=== PATIENT | male | born 1950 | race Caucasian/White ===

== ENCOUNTER 2017-05-30 06:25 | Inpatient (IN) ==
[2017-05-30 06:51] LABS: Basophils # 0.1 K/mcL (0.0-0.2); Basophils % 0.7 %; Eosinophils # 0.1 K/mcL (0.0-0.6); Eosinophils % 1.5 %; Hematocrit 46.4 % (37.5-50.1); Hemoglobin 15.4 g/dL (12.9-16.9); Immature Granulocytes % 0.5 % (0-4); Lymphocytes # 1.2 K/mcL (0.6-4.6); Lymphocytes % 16.7 %; Mean Corpuscular HGB Conc 33.2 g/dL (31.6-35.5); Mean Corpuscular Hemoglobin 31.1 pg (28.0-33.3); Mean Corpuscular Volume 93.7 fL (83.0-100.0); Monocytes # 0.6 K/mcL (0.0-1.3); Monocytes % 8.3 %; Neutrophils # 5.3 K/mcL (1.6-8.9); Platelet Count 174 K/mcL (140-400); Red Blood Count 4.95 M/mcL (4.19-5.50); Red Cell Distribution Width 13.5 % (11.5-14.5); Segmented Neutrophils % 72.3 %
--- NOTE | 2017-05-30 06:59 | Emergency Department Note ---
Disposition Clinical Impression: Elevated troponin level Congestive heart failure Qualifiers: Congestive heart failure type: unspecified congestive heart failure type Congestive heart failure chronicity: acute Qualified Code(s): I50.9 - Heart failure, unspecified Community acquired pneumonia Qualifiers: Laterality: unspecified laterality Qualified Code(s): J18.9 - Pneumonia, unspecified organism Disposition: Admitted As Inpatient Condition: Fair Referrals: Barbara Vaz COLOR PRINTER OPERATOR [Primary Care Provider] - Forms: ED Satisfaction Letter Time of Disposition: 09:03 SOB HPI - General Chief Complaint: ED Shortness of Breath/Dyspnea Stated Complaint: shortness of breath Time Seen by Provider: 05/30/17 06:31 Source: patient Limitations: no limitations Nursing Notes Reviewed: Yes Vital Signs Reviewed: Yes - History of Present Illness Nontoxic-appearing 66-year-old male presents for evaluation of a nonproductive cough, shortness of breath, and pain with inspiration. He states that 2 weeks ago, he was treated for bronchitis with a "antibiotic". He is unsure as to which antibiotic this was. He states that he initially felt symptomatic improvement up until one week ago when symptoms began to return. He now complains of substernal pain with inspiration, as well as with cough. He denies any sputum production or hemoptysis. He denies any fever or chills. He denies any abdominal pain, or vomiting but admits to being slightly nauseated. Pt Subjective Complaint: shortness of breath, cough, pain with inspiration, chest pain Onset (ago): week(s) (One week) Context: recent illness Severity: moderate Consistency/Duration: gradually worsening Improves with: nothing Worsens with: coughing, inspiration Associated symptoms: Reports: pain with inspiration, nausea/vomiting (Nausea without vomiting). Denies: fever, wheezing, sputum production, lower extremity pain, palpitations, hemoptysis, diaphoresis, abdominal pain Treatment prior to arrival: other Cough present: Yes Cough Description: Voluntary Sputum production: No - Related Data Allergies Allergy/AdvReac Type Severity Reaction Status Date / Time No Known Allergies Allergy Verified 05/30/17 06:31 All systems ED: reviewed and negative except as stated. Constitutional: Denies: fever, chills, weakness, weight change Eyes: Denies: eye pain, eye discharge, vision change ENT ED: Denies: ear pain, throat pain, dental pain, hearing loss, epistaxis, congestion, dysphagia Cardiovascular: Reports: as per HPI, chest pain. Denies: palpitations, dyspnea on exertion, edema, syncope Respiratory: Reports: as per HPI, cough, dyspnea. Denies: wheezes, hemoptysis, stridor Gastrointestinal: Reports: as per HPI, nausea. Denies: abdominal pain, vomiting , diarrhea, constipation, hematemesis, melena, hematochezia Genitourinary: Denies: urgency, dysuria, frequency, hematuria Musculoskeletal: Denies: back pain, neck pain, arthralgia, myalgia Integumentary: Denies: rash, abrasion, lesions Neurological: Denies: headache, weakness, numbness, paresthesias, confusion, abnormal gait, vertigo Psychiatric: Denies: anxiety, depression, suicidal thoughts, homicidal thoughts , auditory hallucinations, visual hallucinations Endocrine: Denies: fatigue Hematological/Lymphatic: Denies: easy bleeding, easy bruising Allergic/Immunologic: Denies: facial swelling, urticaria Past Medical History - Past Medical History Attestation: Yes The following information was validated with the patient. Source: patient, nursing notes reviewed Medical history: Reports: diabetes Psychiatric history: Reports: no psych history - Social History Smoking Status: Never smoker Alcohol use: Reports: none Drug use: Reports: none Physical Exam - General Limitations: no limitations General appearance: alert - Head Head exam: atraumatic, normocephalic, normal inspection - Eye Eye exam: Present: normal appearance, PERRL, EOMI. Absent: nystagmus - ENT ENT exam: mucous membranes moist - Neck Neck exam: Present: normal inspection, full ROM, trachea midline - Chest Chest inspection: Present: symmetric chest wall rise, tenderness (Mild, sternal and parasternal region) - Respiratory Respiratory exam: Present: other (Lungs sounds coarse auscultation, right lower/ middle lobe). Absent: respiratory distress, wheezes, stridor, accessory muscle use, prolonged expiratory phase - Cardiovascular Cardiovascular exam: Present: regular rate, normal rhythm, normal heart sounds - Abdominal Exam Abdominal exam: Present: soft, Non-Tender, normal bowel sounds - Extremities Exam Extremities exam: Present: normal inspection, full ROM. Absent: tenderness, pedal edema - Neurological Exam Neurological exam: Present: alert, oriented X3 - Psychiatric Psychiatric exam: Present: normal affect, normal mood - Skin Skin exam: Present: warm, dry, intact, normal color Course Course Narrative: I have discussed this patient's case with Dr. Bettie Briggs. Dr. Bettie Briggs has had a kecc-dy-ucgy evaluation with patient and agrees with admission to the hospital service. She recommends forgoing the administration of heparin at this time. 0900: I spoke with Dr. Boyle of the hospitalist service who has accepted the patient admission to the hospital under the hospitalist service. - Reevaluation(s) Reevaluation #1: The patient states significant improvement in his chest discomfort after the administration of aspirin alone. Time: 08:35 Vital Signs Temperature 97.6 F 05/30/17 06:26 Pulse Rate 113 05/30/17 06:26 Respiratory Rate 18 05/30/17 06:26 Blood Pressure 143/85 05/30/17 06:26 O2 Sat by Pulse Oximetry 94 05/30/17 06:26 Temperature 97.6 F 05/30/17 06:26 Pulse Rate 108 05/30/17 08:33 Respiratory Rate 20 05/30/17 08:33 Blood Pressure 148/99 05/30/17 08:33 O2 Sat by Pulse Oximetry 93 05/30/17 08:33 Oxygen Delivery Oxygen Delivery Room Air Shortness of Breath/Dyspnea - Medical Records Medical records reviewed: Yes I reviewed the patient's medical records. - Lab Data Lab results reviewed: Yes I reviewed the patient's lab results. Result diagrams: 05/30/17 06:43 05/30/17 06:43 Lab Results 05/30/17 05/30/17 05/30/17 Range/Units 06:43 06:43 06:43 WBC 7.4 (4.3-11.1) K/mcL RBC 4.95 (4.19-5.50) M/mcL Hgb 15.4 (12.9-16.9) g/dL Hct 46.4 (37.5-50.1) % MCV 93.7 (83.0-100.0) fL MCH 31.1 (28.0-33.3) pg MCHC 33.2 (31.6-35.5) g/dL RDW 13.5 (11.5-14.5) % Plt Count 174 (140-400) K/mcL MPV 11.0 (9.4-12.4) fL Immature Gran % 0.5 (0-4) % Seg Neutrophils % 72.3 % Lymphocytes % 16.7 % Monocytes % 8.3 % Eosinophils % 1.5 % Basophils % 0.7 % Neutrophils # 5.3 (1.6-8.9) K/mcL Lymphocytes # 1.2 (0.6-4.6) K/mcL Monocytes # 0.6 (0.0-1.3) K/mcL Eosinophils # 0.1 (0.0-0.6) K/mcL Basophils # 0.1 (0.0-0.2) K/mcL D-Dimer 549 H (0-500) ng/mLFEU Sodium 136 (136-145) mEq/L Potassium 4.2 (3.5-4.5) mEq/L Chloride 105 (98-109) mEq/L Carbon Dioxide 23 (19-29) mEq/L BUN 26 (8-26) mg/dL Creatinine 1.13 (0.72-1.25) mg/dL Est GFR ( Amer) > 60 (> 60) Est GFR (Non-Af Amer) > 60 (> 60) BUN/Creatinine Ratio 23 (6-26) Glucose 219 H (70-99) mg/dL Calculated Osmolality 293 (280-300) Lactic Acid (0.5-2.2) mmol/L Calcium 9.4 (8.6-10.8) mg/dL Troponin I (0-0.03) ng/mL B-Natriuretic Peptide (0-100) pg/mL Urine Color (Yellow) Urine Clarity (Clear) Urine pH (5.0-8.0) pH Units Ur Specific Hubbard (1.010-1.025) Urine Protein (Neg-Trace) mg/dL Urine Glucose (UA) (Normal) mg/dL Urine Ketones (Negative) mg/dL Urine Blood (Negative) Urine Nitrite (Negative) Urine Bilirubin (Negative) Urine Urobilinogen (Normal) mg/dL Ur Leukocyte Esterase (Negative) Urine Microscopic RBC (0-3) per hpf Urine Microscopic WBC (0-3) per hpf Ur Squamous Epith Cells (None-Few) per lpf Urine Bacteria (None-Few) per hpf Hyaline Casts (None-Few) per lpf Ur Culture Indicated? (NO) 05/30/17 05/30/17 05/30/17 Range/Units 06:43 06:43 06:43 WBC (4.3-11.1) K/mcL RBC (4.19-5.50) M/mcL Hgb (12.9-16.9) g/dL Hct (37.5-50.1) % MCV (83.0-100.0) fL MCH (28.0-33.3) pg MCHC (31.6-35.5) g/dL RDW (11.5-14.5) % Plt Count (140-400) K/mcL MPV (9.4-12.4) fL Immature Gran % (0-4) % Seg Neutrophils % % Lymphocytes % % Monocytes % % Eosinophils % % Basophils % % Neutrophils # (1.6-8.9) K/mcL Lymphocytes # (0.6-4.6) K/mcL Monocytes # (0.0-1.3) K/mcL Eosinophils # (0.0-0.6) K/mcL Basophils # (0.0-0.2) K/mcL D-Dimer (0-500) ng/mLFEU Sodium (136-145) mEq/L Potassium (3.5-4.5) mEq/L Chloride (98-109) mEq/L Carbon Dioxide (19-29) mEq/L BUN (8-26) mg/dL Creatinine (0.72-1.25) mg/dL Est GFR ( Amer) (> 60) Est GFR (Non-Af Amer) (> 60) BUN/Creatinine Ratio (6-26) Glucose (70-99) mg/dL Calculated Osmolality (280-300) Lactic Acid 1.2 (0.5-2.2) mmol/L Calcium (8.6-10.8) mg/dL Troponin I 0.25 H* (0-0.03) ng/mL B-Natriuretic Peptide 884 H (0-100) pg/mL Urine Color (Yellow) Urine Clarity (Clear) Urine pH (5.0-8.0) pH Units Ur Specific Hubbard (1.010-1.025) Urine Protein (Neg-Trace) mg/dL Urine Glucose (UA) (Normal) mg/dL Urine Ketones (Negative) mg/dL Urine Blood (Negative) Urine Nitrite (Negative) Urine Bilirubin (Negative) Urine Urobilinogen (Normal) mg/dL Ur Leukocyte Esterase (Negative) Urine Microscopic RBC (0-3) per hpf Urine Microscopic WBC (0-3) per hpf Ur Squamous Epith Cells (None-Few) per lpf Urine Bacteria (None-Few) per hpf Hyaline Casts (None-Few) per lpf Ur Culture Indicated? (NO) 05/30/17 Range/Units 07:21 WBC (4.3-11.1) K/mcL RBC (4.19-5.50) M/mcL Hgb (12.9-16.9) g/dL Hct (37.5-50.1) % MCV (83.0-100.0) fL MCH (28.0-33.3) pg MCHC (31.6-35.5) g/dL RDW (11.5-14.5) % Plt Count (140-400) K/mcL MPV (9.4-12.4) fL Immature Gran % (0-4) % Seg Neutrophils % % Lymphocytes % % Monocytes % % Eosinophils % % Basophils % % Neutrophils # (1.6-8.9) K/mcL Lymphocytes # (0.6-4.6) K/mcL Monocytes # (0.0-1.3) K/mcL Eosinophils # (0.0-0.6) K/mcL Basophils # (0.0-0.2) K/mcL D-Dimer (0-500) ng/mLFEU Sodium (136-145) mEq/L Potassium (3.5-4.5) mEq/L Chloride (98-109) mEq/L Carbon Dioxide (19-29) mEq/L BUN (8-26) mg/dL Creatinine (0.72-1.25) mg/dL Est GFR ( Amer) (> 60) Est GFR (Non-Af Amer) (> 60) BUN/Creatinine Ratio (6-26) Glucose (70-99) mg/dL Calculated Osmolality (280-300) Lactic Acid (0.5-2.2) mmol/L Calcium (8.6-10.8) mg/dL Troponin I (0-0.03) ng/mL B-Natriuretic Peptide (0-100) pg/mL Urine Color Yellow (Yellow) Urine Clarity Clear (Clear) Urine pH 6.0 (5.0-8.0) pH Units Ur Specific Hubbard > 1.030 H (1.010-1.025) Urine Protein 30 H (Neg-Trace) mg/dL Urine Glucose (UA) 250 H (Normal) mg/dL Urine Ketones Trace H (Negative) mg/dL Urine Blood Small H (Negative) Urine Nitrite Negative (Negative) Urine Bilirubin Negative (Negative) Urine Urobilinogen Normal (Normal) mg/dL Ur Leukocyte Esterase Negative (Negative) Urine Microscopic RBC 5-15 H (0-3) per hpf Urine Microscopic WBC 0-3 (0-3) per hpf Ur Squamous Epith Cells Moderate H (None-Few) per lpf Urine Bacteria None Seen (None-Few) per hpf Hyaline Casts None Seen (None-Few) per lpf Ur Culture Indicated? NO (NO) - Radiology Data Radiology results reviewed: Yes I reviewed the patient's radiology results. - EKG Data EKG attestation: Yes I reviewed and interpreted this EKG. EKG results narrative: EKG reviewed by Dr. Bettie Briggs as well. EKG shows sinus tachycardia at a rate of 114 beats per minute with left atrial enlargement, ST deviation and moderate T wave abnormality. VA interval 180, QRS duration 104, QT/QTc interval 312/379. No ectopy noted. No STEMI. No old EKG available for comparison.
[2017-05-30 07:06] LABS: BUN/Creatinine Ratio 23 (6-26); Blood Urea Nitrogen 26 mg/dL (8-26); Calcium 9.4 mg/dL (8.6-10.8); Carbon Dioxide 23 mEq/L (19-29); Chloride 105 mEq/L (98-109); Glucose 219 mg/dL (70-99); Osmolality,Calculated 293 (280-300); Potassium 4.2 mEq/L (3.5-4.5); Sodium 136 mEq/L (136-145); eGFR For African Americans > 60 (> 60); eGFR For Non-African Americans > 60 (> 60)
[2017-05-30] MEDS ORDERED: Aspirin 81 MG TAB.CHEW PO STA (07:19)
[2017-05-30] MEDS ORDERED: Furosemide 40 MG/4 ML VIAL IVP ONE (07:19)
[2017-05-30 07:36] LABS: Bilirubin,Urine Negative (Negative); Blood,Urine Small (Negative); Clarity,Urine Clear (Clear); Color,Urine Yellow (Yellow); Glucose,Urine (UA) 250 mg/dL (Normal); Ketones,Urine Trace mg/dL (Negative); Leukocyte Esterase,Urine Negative (Negative); Nitrite,Urine Negative (Negative); Protein,Urine 30 mg/dL (Neg-Trace); Specific Gravity,Urine > 1.030 (1.010-1.025); Urobilinogen,Urine Normal (Normal)
[2017-05-30 07:39] LABS: Bacteria,Urine None Seen per hpf (None-Few); Hyaline Casts,Urine None Seen per lpf (None-Few); Squamous Epithelial Cell,Urine Moderate per lpf (None-Few); WBC,Urine 0-3 per hpf (0-3)
--- NOTE | 2017-05-30 07:48 | Emergency Department Note ---
START Narrative - START START: For this encounter, I have reviewed the AIRCRAFT PART ASSEMBLER or PA documentation, treatment plan, and medical decision making; and I have had face to face time with this patient. 66 year old male who has been experiencing bronchtis type symptomat with incresed congestion for the past few days state that he has been having increased shortness of breath. Patiet appears to have tachycardiac wih CHF on CXR and an elevated D-dimer witih a troponin of 0.25, we will obtain a cTA to rule out PE and admit to medicine after doising him with ASA for elevated troponin and CHF if PE study is negative.
[2017-05-30] MEDS ORDERED: Azithromycin 500 MG in D5% in Water 250 ML IVPB ONE (08:34)
[2017-05-30] MEDS ORDERED: cefTRIAXone 1,000 MG in Water for inj. (sterile) 10 ML IVPB ONE (10:00)
[2017-05-30] MEDS ORDERED: Ondansetron 4 MG/2 ML VIAL IVP PRN (10:07)
[2017-05-30] MEDS ORDERED: Naloxone 0.4 MG/ML INJ IVP PRN (10:07)
[2017-05-30] MEDS ORDERED: *HR* Dextrose 50 % in Water (Syg) 50 ML SYRINGE IVP PRN (10:10)
[2017-05-30] MEDS ORDERED: Dextrose Gel 15 GM PO PRN ×2 (10:10)
[2017-05-30] MEDS ORDERED: D5% in Water 1,000 ML IVC PRN (10:10)
[2017-05-30 10:34] LABS: Hemoglobin A1C 6.6 %
[2017-05-30] MEDS: Insulin LISPRO 300 UNITS/3 ML VIAL SQ SCH ×3 (12:34→21:17)
[2017-05-30] MEDS ORDERED: *HR* Heparin 5,000 UNIT/ML VIAL IVP PRN (13:23)
[2017-05-30] MEDS ORDERED: *HR* Heparin 5,000 UNIT/ML VIAL IVP ONE (13:23)
[2017-05-30 14:18] LABS: Hematocrit 43.9 % (37.5-50.1); Hemoglobin 14.7 g/dL (12.9-16.9); Mean Corpuscular HGB Conc 33.5 g/dL (31.6-35.5); Mean Corpuscular Hemoglobin 31.1 pg (28.0-33.3); Mean Corpuscular Volume 92.8 fL (83.0-100.0); Mean Platelet Volume 11.2 fL (9.4-12.4); Platelet Count 175 K/mcL (140-400); Red Blood Count 4.73 M/mcL (4.19-5.50); Red Cell Distribution Width 13.4 % (11.5-14.5)
[2017-05-30 14:21] LABS: INR 1.1; Prothrombin Time 11.4 Seconds (9.4-12.1)
[2017-05-30 14:24] LABS: Activated Partial Thrombo Time 38.4 Seconds (26.0-36.0)
[2017-05-30] MEDS ORDERED: Benzonatate 100 MG CAPSULE PO PRN (15:15)
[2017-05-30] MEDS: Heparin 25,000 UNIT/500 ML D5W 25,000 UNIT/500 ML MLS IVC SCH (15:27)
--- NOTE | 2017-05-30 15:39 | Internal Med History&Physical ---
Date of Encounter: 05/30/17 Time of Encounter: 13:15 Assessment and Plan (1) NSTEMI (non-ST elevated myocardial infarction) Current visit: Yes Status: Acute Currently chest pain free continue to monitor serial TNI started heparin gtt cardiology input requested nitroglycerin SL prn chest pain asa, statin f/u 2D echo (2) CHF exacerbation Current visit: Yes Status: Acute no prior history of CHF however clinical signs concerning for CHF follow up 2D echo continue IV diuresis (lasix 20mg IV BID) monitor daily weights, I/Os, fluid restriction diet Qualifiers: Congestive heart failure type: unspecified congestive heart failure type Qualified Code(s): I50.9 - Heart failure, unspecified (3) Diabetes mellitus Current visit: Yes Status: Chronic continue home insulin regimen sliding scale insulin algorithm as needed monitor FS and BG ADA diet Qualifiers: Diabetes mellitus type: type 2 Diabetes mellitus complication status: with unspecified complications Diabetes mellitus [facility] insulin use: with [facility] use Qualified Code(s): E11.8 - Type 2 diabetes mellitus with unspecified complications; Z79.4 - intermediate (current) use of insulin; Z79.4 - intermediate ( current) use of insulin; Z79.4 - terminal gauger supervisor (current) use of insulin; Z79.4 - intermediate (current) use of insulin (4) DVT prophylaxis Current visit: Yes Status: Acute Heparin gtt (5) Community acquired pneumonia Current visit: Yes Status: Acute continue Levaquin follow up blood cultures Qualifiers: Laterality: unspecified laterality Qualified Code(s): J18.9 - Pneumonia, unspecified organism Internal Medicine - H&P: HPI Chief complaint: shortness of breath Admitted From: Home Plans for Post Hospital Care: Home History of present illness: Mr. Servin is a 66 year old male with PMH of DM presented to the ER for worsening shortness of breath and intermittent chest pain. Pt reports of recently finishing treatment for bronchitis with antibiotics and states he initially felt better with improvement of his shortness of breath however his symptoms persisted despite him finishing his bronchitis treatment. Reports of worsening shortness of breath with minimal exertion and states he is unable to lay down flat. Reports of localized left sided, pressure like chest pain, that is worst with deep inspiration. He was found to elevate BNP, D dimer in the ER. CT negative for PE but findings consistent with pleural effusions bilaterally and findings concerning for PNA. He is currently resting comfortably in bed and denies any chest pain at this time. Denies any cough, sob, n/v, fever, or chills at this time. Noted to have gradual increase in TNI, cardiology consulted, will treat as NSTEMI and started pt on Heparin gtt Social history: Former smoker Code status: Full code Past Med Surg Social Fam HX - Past Medical History Medical history: diabetes Psychiatric history: no psych history - Social History Smoking Status: Former smoker Smokeless Tobacco Status: No Alcohol use: none Drug use: none - Family History Father Hx Family Cardiac Disorders: Yes Internal Medicine - H&P: Meds Aspirin [Lo-Dose Aspirin EC] 81 mg PO DAILY 05/30/17 [History] Dicyclomine [Bentyl] 10 mg PO QID PRN 05/30/17 [History] Insulin Glargine,Hum.rec.anlog [Lantus Solostar] 20 unit SQ HS 05/30/17 [History ] Insulin LISPRO [Humalog] 2 - 12 unit SQ TIDWM 05/30/17 [History] Multivitamin [One Daily Essential] 1 tab PO DAILY 05/30/17 [History] Ripley-3/Dha/Epa/Fish Oil [Fish Oil 1,000 mg Softgel] 1,000 mg PO DAILY 05/30/17 [History] SitaGLIPtin [Januvia] 25 mg PO DAILY 05/30/17 [History] metFORMIN [Glucophage] 500 mg PO BID 05/30/17 [History] 3 Allergy/AdvReac Type Severity Reaction Status Date / Time No Known Allergies Allergy Verified 05/30/17 06:31 All Systems PM: A 10-system review of systems was performed and is negative for pertinent findings except as documented above in the HPI. - Constitutional Constitutional: as per HPI - Constitutional Vitals: Temp Pulse Resp BP Pulse Ox 97.6 F 104 19 127/87 95 05/30/17 09:54 05/30/17 09:54 05/30/17 09:54 05/30/17 09:54 05/30/17 09:54 General appearance: Present: cooperative, A&O X 3, pleasant, no acute distress, answers questions appropriately - Head Head exam: Present: atraumatic, normocephalic - Respiratory Respiratory exam: Present: rales (bibasilar rales ). Absent: accessory muscle use, rhonchi, wheezes - Cardiovascular Cardiovascular exam: Present: RRR, +S1, +S2. Absent: diastolic murmur, gallop, rubs, systolic murmur - GI/Abdominal GI/Abdominal exam: Present: normal bowel sounds, soft, no peritoneal signs. Absent: distended, tenderness - Extremities Exam Extremities exam: Present: warm, radial pulses palpable and symmetrical. Absent : calf tenderness, cyanotic, pedal edema - Neurological Exam Neurological exam: Present: alert, oriented X3 - Psychiatric Psychiatric exam: Present: normal affect, normal mood Internal Med - H&P Results - Labs CBC & Chem 7: 05/30/17 13:51 05/30/17 06:43 Labs: Short CBC 05/30/17 Range/Units 13:51 WBC 6.9 (4.3-11.1) K/mcL Hgb 14.7 (12.9-16.9) g/dL Hct 43.9 (37.5-50.1) % Plt Count 175 (140-400) K/mcL Cardiac Enzymes 05/30/17 Range/Units 12:19 Troponin I 0.45 H* (0-0.03) ng/mL
[2017-05-30] MEDS ORDERED: Nitroglycerin 0.4 MG TAB.SUBL SL PRN (15:42)
[2017-05-30] MEDS: *HR* HYDROcodone/Acet 5/325 mg TABLET PO PRN (18:55)
[2017-05-30] MEDS: Furosemide 20 MG/2 ML VIAL IVP SCH (21:17)
[2017-05-30] MEDS: Insulin DETEMIR 100 UNIT/ML X5UNITS SQ SCH (21:19)
[2017-05-30 21:43] LABS: Activated Partial Thrombo Time 121.2 Seconds (26.0-36.0)
[2017-05-30 21:50] LABS: Heparin anti-factor XA UFH 0.42 IU/mL (0.30-0.70)
[2017-05-31 03:25] LABS: Basophils # 0.1 K/mcL (0.0-0.2); Basophils % 0.7 %; Eosinophils # 0.2 K/mcL (0.0-0.6); Eosinophils % 2.5 %; Hematocrit 43.4 % (37.5-50.1); Hemoglobin 14.7 g/dL (12.9-16.9); Immature Granulocytes % 0.4 % (0-4); Lymphocytes % 28.6 %; Mean Corpuscular HGB Conc 33.9 g/dL (31.6-35.5); Mean Corpuscular Hemoglobin 31.3 pg (28.0-33.3); Mean Corpuscular Volume 92.3 fL (83.0-100.0); Mean Platelet Volume 11.2 fL (9.4-12.4); Monocytes # 0.7 K/mcL (0.0-1.3); Monocytes % 10.3 %; Platelet Count 175 K/mcL (140-400); Red Cell Distribution Width 13.3 % (11.5-14.5); Segmented Neutrophils % 57.5 %
[2017-05-31 03:43] LABS: BUN/Creatinine Ratio 21 (6-26); Blood Urea Nitrogen 24 mg/dL (8-26); Calcium 9.5 mg/dL (8.6-10.8); Carbon Dioxide 28 mEq/L (19-29); Chloride 101 mEq/L (98-109); Chol/HDL Ratio 4.6 (0-4.9); Cholesterol 232 mg/dL (< 200); Glucose 168 mg/dL (70-99); HDL Cholesterol 50 mg/dL (40-59); LDL Cholesterol,Calculated 157 mg/dL (0-99); Magnesium 2.1 mg/dL (1.6-2.6); Osmolality,Calculated 290 (280-300); Phosphorous 2.8 mg/dL (2.3-4.7); Potassium 3.9 mEq/L (3.5-4.5); Sodium 136 mEq/L (136-145); Triglycerides 125 mg/dL (< 150); eGFR For African Americans > 60 (> 60); eGFR For Non-African Americans > 60 (> 60)
--- NOTE | 2017-05-31 09:25 | Cardiology Consult Note ---
<Zackery Benítez Lanette - Last Filed: 05/31/17 09:23> Date of Encounter: 05/31/17 Time of Encounter: 09:23 Assessment and Plan (1) NSTEMI (non-ST elevated myocardial infarction) Current Visit: Yes Status: Acute Troponins 0.25, 0.45, 0.72--also in setting of CHF exacerbation and possible PNA. EKG with lateral ischemia. Suspect NSTEMI. Pt on heparin gtt. ASA, Statin, BB. Recommend [facility]. R/B/A discussed. Pt agrees, but would like to wait until tomorrow when his sister can be here. She is working today. Check echo to evaluate structure and function. Plan for [facility] tomorrow.Continue to medically manage today. Denies chest pain currently. (2) CHF exacerbation Current Visit: Yes Status: Acute Uncertain type--echo pending to determine systolic vs diastolic. BNP 884. CXR with evidence of CHF and chest CTA with moderate bilateral pleural effusions. Agree with IV diuresis--20mg IV BID. Recommend strict I/Os, Na and fluid restriction, daily weights. Qualifiers: Congestive heart failure type: unspecified congestive heart failure type Qualified Code(s): I50.9 - Heart failure, unspecified Discussion w patient/family: The assessment and plan as outlined above was discussed with the patient and/or family members who expressed understanding and agreement. All questions were answered. Thank you for involving us in the care of your patient. Please call with any questions. I will discuss all the above with Dr. Lamar and make changes as necessary. History of Present Illness Consult date: 05/31/17 Requesting physician: Nohelia Boyle Consult reason: NSTEMI, CHF Chief complaint: dyspnea, chest pain History of present illness: Mr. Servin is a 66 year old male with PMH of DM presented to the ER for worsening shortness of breath and intermittent chest pain. Pt reports of recently finishing treatment for bronchitis with antibiotics and states he initially felt better with improvement of his shortness of breath however his symptoms persisted despite him finishing his bronchitis treatment. Reports of worsening shortness of breath with minimal exertion and states he is unable to lay down flat. Reports of localized left sided, pressure like chest pain, that is worst with deep inspiration and also on exertion. He was found to elevate BNP , D dimer in the ER. CT negative for PE but findings consistent with pleural effusions bilaterally and findings concerning for PNA. Troponins 0.25, 0.45, 0.72. Cardiology consulted for further recommendations. Past Med Surg Social Fam HX - Past Medical History Medical history: diabetes Psychiatric history: no psych history - Social History Smoking Status: Former smoker Smokeless Tobacco Status: No Alcohol use: none Drug use: none - Family History Father Hx Family Cardiac Disorders: Yes Medications and Allergies Aspirin [Lo-Dose Aspirin EC] 81 mg PO DAILY 05/30/17 [History] Dicyclomine [Bentyl] 10 mg PO QID PRN 05/30/17 [History] Insulin Glargine,Hum.rec.anlog [Lantus Solostar] 20 unit SQ HS 05/30/17 [History ] Insulin LISPRO [Humalog] 2 - 12 unit SQ TIDWM 05/30/17 [History] Multivitamin [One Daily Essential] 1 tab PO DAILY 05/30/17 [History] Garnett-3/Dha/Epa/Fish Oil [Fish Oil 1,000 mg Softgel] 1,000 mg PO DAILY 05/30/17 [History] SitaGLIPtin [Januvia] 25 mg PO DAILY 05/30/17 [History] metFORMIN [Glucophage] 500 mg PO BID 05/30/17 [History] 3 Allergy/AdvReac Type Severity Reaction Status Date / Time No Known Allergies Allergy Verified 05/30/17 06:31 All Systems Review: A 10-system review of systems was performed and is negative for pertinent findings except as documented above in the HPI. - Cardiovascular Cardiovascular: as per HPI, chest pain at rest, chest pain with exertion, dyspnea at rest, dyspnea on exertion, leg edema, orthopnea - Respiratory Respiratory: cough, dyspnea Physical Examination Vital Signs, Last 4 Hours Temp Pulse Resp BP Pulse Ox 05/31/17 07:28 97.6 F 92 19 136/84 99 Vital Signs Temp Pulse Resp BP Pulse Ox 05/31/17 07:28 97.6 F 92 19 136/84 99 05/31/17 04:19 98.3 F 92 16 118/84 98 05/31/17 00:13 97.8 F 90 16 127/80 95 05/30/17 19:12 98.5 F 92 18 117/80 94 05/30/17 15:39 97.7 F 98 18 127/82 94 05/30/17 09:54 97.6 F 104 19 127/87 95 Intake and Output 05/30/17 05/31/17 05/31/17 23:59 07:59 15:59 Intake Total 477 / 477 73 / 73 240 / 240 Output Total 925 / 925 175 / 175 Balance -448 / -448 -102 / -102 240 / 240 Intake: IV Fluids 117 / 117 73 / 73 Heparin 25,000 UNIT/500 ML D5W 117 / 117 73 / 73 25,000 unit In 500 ml @ 12 UNIT /KG/HR 18.833 mls/hr IVC .Q24H JAMIL Rx#:[id number] Oral 360 / 360 240 / 240 Output: Urine 925 / 925 175 / 175 Other: Meal No fluids given. Breakfast Percent of Meal Consumed 100% 100% Weight 77.655 kg Blood Glucose* 173 145 Patient Weight 05/31/17 23:59 Weight 77.655 kg General: Conversant, No Apparent Distress HEENT: Atraumatic, Normocephaly, Mucus Membranes Moist Neck: Normal carotid pulses Cardiac: Reg Rate and Rhythm, Normal S1 and S2, No Murmur Lungs: Other (diminished) Neuro: Alert and responsive, No focal deficits noted Abdomen: Soft, Non-Tender Skin: No rashes noted on visualized skin Musculoskeletal: No Chest Wall Tenderness Extremities: No Clubbing, No Cyanosis, No Edema, Normal Pulses Results 05/31/17 02:47 05/31/17 02:47 Lab Results 05/30/17 05/30/17 05/30/17 12:19 13:51 13:51 WBC 6.9 Hgb 14.7 Hct 43.9 Plt Count 175 INR 1.1 APTT 38.4 H Sodium Potassium Chloride Carbon Dioxide BUN Creatinine Glucose Calcium Magnesium Troponin I 0.45 H* 05/30/17 05/30/17 05/31/17 18:20 20:57 02:47 WBC 6.9 Hgb 14.7 Hct 43.4 Plt Count 175 INR APTT 121.2 H* D Sodium Potassium Chloride Carbon Dioxide BUN Creatinine Glucose Calcium Magnesium Troponin I 0.72 H* 05/31/17 05/31/17 05/31/17 02:47 02:47 08:07 WBC Hgb Hct Plt Count INR APTT 62.8 H 55.5 H Sodium 136 Potassium 3.9 Chloride 101 Carbon Dioxide 28 BUN 24 Creatinine 1.16 Glucose 168 H Calcium 9.5 Magnesium 2.1 Troponin I Short CBC 05/31/17 05/30/17 Range/Units 02:47 13:51 WBC 6.9 6.9 (4.3-11.1) K/mcL Hgb 14.7 14.7 (12.9-16.9) g/dL Hct 43.4 43.9 (37.5-50.1) % Plt Count 175 175 (140-400) K/mcL Neutrophils # 4.0 (1.6-8.9) K/mcL BMP 05/31/17 Range/Units 02:47 Sodium 136 (136-145) mEq/L Potassium 3.9 (3.5-4.5) mEq/L Chloride 101 (98-109) mEq/L Carbon Dioxide 28 (19-29) mEq/L BUN 24 (8-26) mg/dL Creatinine 1.16 (0.72-1.25) mg/dL Glucose 168 H (70-99) mg/dL Calcium 9.5 (8.6-10.8) mg/dL Cardiac Enzymes 05/30/17 05/30/17 Range/Units 18:20 12:19 Troponin I 0.72 H* 0.45 H* (0-0.03) ng/mL Active Medications Hydrocodone Bitart/Acetaminophen ([place] 5-325 Mg) 1 tab PO Q6HR PRN PRN Reason: moderate to severe pain. Stop: 11/29/17 18:45 Last Admin: 05/30/17 18:55 Dose: 1 tab Aspirin (Aspirin Ec) 81 mg PO DAILY [facility] Stop: 11/30/17 09:01 Atorvastatin Calcium (Lipitor) 80 mg PO HS [facility] Stop: 11/29/17 13:13 Last Admin: 05/30/17 21:16 Dose: 80 mg Benzonatate (Tessalon) 100 mg PO TID PRN PRN Reason: Cough Stop: 11/29/17 15:16 Dextrose/Water (Dextrose 50% (Syg)) 25 ml IVP AD PRN PRN Reason: Hypoglycemia Stop: 11/29/17 10:11 Furosemide (Lasix) 20 mg IVP BID [facility] Stop: 11/29/17 21:01 Last Admin: 05/30/17 21:17 Dose: 20 mg Glucagon (Glucagen) 1 mg IM ONCE PRN PRN Reason: Hypoglycemia Stop: 11/29/17 10:11 Glucose (Gluctose) 15 gm PO ONCE PRN PRN Reason: Hypoglycemia Stop: 11/29/17 10:11 Glucose (Gluctose) 30 gm PO ONCE PRN PRN Reason: Hypoglycemia Stop: 11/29/17 10:11 Heparin Sodium (Porcine) (Heparin) 4,000 unit IVP Q6HR PRN PRN Reason: SEE COMMENTS Stop: 11/29/17 13:24 Heparin Sodium (Porcine) (Heparin) 2,000 unit IVP Q6H PRN PRN Reason: SEE COMMENTS Stop: 11/29/17 13:24 Dextrose (Dextrose 5%) 1,000 mls @ 100 mls/hr IVC .Q10H PRN PRN Reason: HYPOGLYCEMIA Stop: 11/29/17 10:11 Levofloxacin/Dextrose (Levaquin Premix 750mg/150 Ml) 750 mg in 150 mls @ 100 mls/hr IVPB DAILY JAMIL PRN Reason: Protocol Stop: 11/30/17 09:01 Heparin Sodium/Dextrose (Heparin 25,000 Unit/500 Ml D5w) 25,000 unit in 500 mls @ 18.833 mls/hr IVC .Q24H JAMIL; 12 UNIT/KG/HR PRN Reason: Protocol Stop: 11/29/17 13:31 Last Titration: 05/31/17 04:13 Dose: 8.79 unit/kg/hr, 13.8 mls/hr Insulin Detemir (Levemir) 20 unit SQ HS JAMIL Stop: 11/29/17 21:01 Last Admin: 05/30/17 21:19 Dose: 20 unit Insulin Human Lispro (Humalog) 0 units SQ HS JAMIL PRN Reason: Protocol Stop: 11/29/17 21:01 Last Admin: 05/30/17 21:17 Dose: Not Given Insulin Human Lispro (Humalog) 0 units SQ TIDAC JAMIL PRN Reason: Protocol Stop: 11/29/17 11:31 Last Admin: 05/30/17 16:47 Dose: 4 units Naloxone HCl (Narcan) 0.4 mg IVP Q2MIN PRN PRN Reason: Opioid Reversal Stop: 11/29/17 10:08 Nitroglycerin (Nitroglycerin) 0.4 mg SL Q5MIN PRN PRN Reason: Chest Pain Stop: 11/29/17 15:43 Ondansetron HCl (Zofran) 4 mg IVP Q6HR PRN PRN Reason: Nausea And Vomiting Stop: 11/29/17 10:08 - Imaging and Cardiology Echo: pending - EKG Interpretation EKG results cardiology: personally reviewed (SR, lateral ischemia), other (12 hr tele AVG HR 92, SR, no significant pauses or arrhythmias.) Consult Discharge Plan - Plan Referrals: Barbara Vaz, TEA TASTER [Primary Care Provider] - (WEB REQUEST SENT ON 05/31/17) <Bel Lamar - Last Filed: 05/31/17 11:45> Date of Encounter: 05/31/17 - Attending Attestation I have personally performed a face to face evaluation on this patient. I have reviewed and agree with the care plan with TEA TASTER: Mr. Servin is a 66-year-old male with diabetes and remote smoking presenting with worsening shortness of breath and and intermittent chest pain. Workup included an elevated troponin of 0.72. He had a CTA which was negative for PE but findings consistent with bilateral pleural effusions and concern for developing pneumonia. BNP also elevated. ECG suggestive of ischemia. This was discussed with the patient in detail. We recommend pursuing a [facility]. The R/B /A of the procedure were discussed with the patient. He expressed understanding and verbalized agreement to proceed. He would like to have his sister present for the procedure - she will be able to attend tomorrow. In the interim, recommend continuing heparin drip, asa, statin, BB and diuresing. Assessment and Plan Discussion w patient/family: The assessment and plan as outlined above was discussed with the patient and/or family members who expressed understanding and agreement. All questions were answered. Thank you for involving us in the care of your patient. Please call with any questions. History of Present Illness History of present illness: Mr. Servin is a 66 year old male All Systems Review: A 10-system review of systems was performed and is negative for pertinent findings except as documented above in the HPI. Physical Examination Vital Signs, Last 4 Hours Temp Pulse Resp BP Pulse Ox 05/31/17 11:33 97.3 F L 99 18 131/83 97 Results 05/31/17 02:47 05/31/17 02:47 Lab Results 05/30/17 05/30/17 05/30/17 12:19 13:51 13:51 WBC 6.9 Hgb 14.7 Hct 43.9 Plt Count 175 INR 1.1 APTT 38.4 H Sodium Potassium Chloride Carbon Dioxide BUN Creatinine Glucose Calcium Magnesium Troponin I 0.45 H* 05/30/17 05/30/17 05/31/17 18:20 20:57 02:47 WBC 6.9 Hgb 14.7 Hct 43.4 Plt Count 175 INR APTT 121.2 H* D Sodium Potassium Chloride Carbon Dioxide BUN Creatinine Glucose Calcium Magnesium Troponin I 0.72 H* 05/31/17 05/31/17 05/31/17 02:47 02:47 08:07 WBC Hgb Hct Plt Count INR APTT 62.8 H 55.5 H Sodium 136 Potassium 3.9 Chloride 101 Carbon Dioxide 28 BUN 24 Creatinine 1.16 Glucose 168 H Calcium 9.5 Magnesium 2.1 Troponin I
[2017-05-31] MEDS ORDERED: Perflutren Lipid Microsphere 1.3 ML in 0.9 % Sodium Chloride 8.7 ML IVP ONE (09:44)
[2017-05-31] MEDS: Levofloxacin 750 MG/150 ML 750 MG/150 ML BAG IVPB SCH (10:33)
[2017-05-31] MEDS: Furosemide 20 MG/2 ML VIAL IVP SCH ×2 (10:34→20:21)
[2017-05-31] MEDS: Aspirin Enteric Coated 81 MG Tablet PO SCH (10:34)
[2017-05-31] MEDS: Metoprolol XL (24 HR) Succ 25 MG TAB.ER.24H PO SCH (10:34)
[2017-05-31] MEDS: Insulin LISPRO 300 UNITS/3 ML VIAL SQ SCH ×4 (10:35→20:30)
[2017-05-31] MEDS: *HR* Heparin 5,000 UNIT/ML VIAL IVP PRN (10:35)
--- NOTE | 2017-05-31 12:07 | Internal Med Progress Note ---
Date of Encounter: 05/31/17 Time of Encounter: 11:20 - Assessment and plan (1) NSTEMI (non-ST elevated myocardial infarction) Current Visit: Yes Status: Acute Assessment and plan: Serial TNI noted continue heparin gtt cardiology input appreciated scheduled for [facility] in am, NPO after midnight continue asa, bb, statin tele monitoring f/u 2D echo pt currently chest pain free (2) CHF exacerbation Current Visit: Yes Status: Acute Assessment and plan: clinically improving f/u 2D echo continue IV diuretics monitor daily weights, strict I/Os fluid restriction diet Qualifiers: Congestive heart failure type: unspecified congestive heart failure type Qualified Code(s): I50.9 - Heart failure, unspecified (3) Diabetes mellitus Current Visit: Yes Status: Chronic Assessment and plan: continue to monitor FS and BG sliding scale insulin algorithm ADA diet Qualifiers: Diabetes mellitus type: type 2 Diabetes mellitus complication status: with unspecified complications Diabetes mellitus retirement insulin use: with retirement use Qualified Code(s): E11.8 - Type 2 diabetes mellitus with unspecified complications; Z79.4 - prison (current) use of insulin; Z79.4 - superintendent [employer] ( current) use of insulin; Z79.4 - [employer] (current) use of insulin; Z79.4 - [employer] (current) use of insulin (4) DVT prophylaxis Current Visit: Yes Status: Acute Assessment and plan: anticoagulated with heparin gtt (5) Community acquired pneumonia Current Visit: Yes Status: Acute Assessment and plan: continue levaquin f/u blood cultures Qualifiers: Laterality: unspecified laterality Qualified Code(s): J18.9 - Pneumonia, unspecified organism - Subjective Interval history: Patient seen and examined at bedside. Sitting in bed and reports of feeling better compared to previous day. States there is improvement in his shortness of breath. - Constitutional Vitals: Temp Pulse Resp BP Pulse Ox 97.3 F L 99 18 131/83 97 05/31/17 11:33 05/31/17 11:33 05/31/17 11:33 05/31/17 11:33 05/31/17 11:33 General appearance: Present: cooperative, A&O X 3, pleasant, no acute distress, answers questions appropriately - Head Head exam: Present: atraumatic, normocephalic - Respiratory Respiratory exam: Absent: respiratory distress, wheezes (bibasilar crackles- improved from previous day) - Cardiovascular Cardiovascular exam: Present: RRR, +S1, +S2. Absent: diastolic murmur, gallop, rubs, systolic murmur - GI/Abdominal GI/Abdominal exam: Present: normal bowel sounds, soft, no peritoneal signs. Absent: distended, tenderness - Extremities Exam Extremities exam: Present: warm, radial pulses palpable and symmetrical. Absent : calf tenderness, pedal edema - Neurological Exam Neurological exam: Present: alert, oriented X3 - Psychiatric Psychiatric exam: Present: normal affect, normal mood Internal Medicine: Result - Labs CBC & Chem 7: 05/31/17 02:47 05/31/17 02:47 Labs: Short CBC 05/30/17 05/31/17 Range/Units 13:51 02:47 WBC 6.9 6.9 (4.3-11.1) K/mcL Hgb 14.7 14.7 (12.9-16.9) g/dL Hct 43.9 43.4 (37.5-50.1) % Plt Count 175 175 (140-400) K/mcL Neutrophils # 4.0 (1.6-8.9) K/mcL BMP 05/31/17 02:47 Sodium 136 Potassium 3.9 Chloride 101 Carbon Dioxide 28 BUN 24 Creatinine 1.16 Glucose 168 H Calcium 9.5 Cardiac Enzymes 05/30/17 05/30/17 Range/Units 12:19 18:20 Troponin I 0.45 H* 0.72 H* (0-0.03) ng/mL - ABG Interpretation ABG results: PT/INR, D-dimer PT 11.4 Seconds (9.4-12.1) 05/30/17 13:51 D-Dimer 549 ng/mLFEU (0-500) H 05/30/17 06:43 Consult Discharge Plan - Plan Referrals: Barbara Vaz CNP [Primary Care Provider] - (WEB REQUEST SENT ON 05/31/17)
--- NOTE | 2017-05-31 17:51 | Electrocardiograph Report ---
[place] [id number] Test Date: 2017-05-30 Pat Name: Ismael Servin Department: 104 Room: 2A45 Gender: M Smudger: ADA : 1950 Requested By: Kelvin Porras Order Number: [id number] Reading MD: Bel Lamar Measurements Intervals [place] Rate: 114 P: 44 [place]: 180 QRS: 21 QRSD: 104 T: 227 QT: 312 QTc: 379 Interpretive Statements SINUS TACHYCARDIA LEFT ATRIAL ENLARGEMENT [-0.15mV P WAVE IN V1/V2] ST DEVIATION AND MODERATE T-WAVE ABNORMALITY, CONSIDER LATERAL ISCHEMIA [-0.1+ mV T WAVE IN I/aVL/V5/V6] Electronically Signed On 05-31-2017 17:50:12 EST by Bel Lamar
[2017-05-31] MEDS: *HR* HYDROcodone/Acet 5/325 mg TABLET PO PRN (20:19)
[2017-05-31] MEDS: Insulin DETEMIR 100 UNIT/ML X5UNITS SQ SCH (20:21)
[2017-06-01] MEDS: Heparin 25,000 UNIT/500 ML D5W 25,000 UNIT/500 ML MLS IVC SCH (01:09)
[2017-06-01] MEDS: *HR* Heparin 5,000 UNIT/ML VIAL IVP PRN (01:13)
[2017-06-01] MEDS: *HR* HYDROcodone/Acet 5/325 mg TABLET PO PRN ×2 (04:46→17:49)
[2017-06-01 06:59] LABS: BUN/Creatinine Ratio 23 (6-26); Blood Urea Nitrogen 24 mg/dL (8-26); Carbon Dioxide 25 mEq/L (19-29); Chloride 103 mEq/L (98-109); Glucose 229 mg/dL (70-99); Osmolality,Calculated 291 (280-300); Phosphorous 2.7 mg/dL (2.3-4.7); Potassium 4.3 mEq/L (3.5-4.5); Sodium 135 mEq/L (136-145); eGFR For African Americans > 60 (> 60); eGFR For Non-African Americans > 60 (> 60)
[2017-06-01] MEDS: Insulin LISPRO 300 UNITS/3 ML VIAL SQ SCH ×4 (08:45→21:23)
[2017-06-01] MEDS: Levofloxacin 750 MG/150 ML 750 MG/150 ML BAG IVPB SCH (08:51)
[2017-06-01] MEDS: Aspirin Enteric Coated 81 MG Tablet PO SCH (08:52)
[2017-06-01] MEDS: Furosemide 20 MG/2 ML VIAL IVP SCH (08:52)
[2017-06-01] MEDS: Metoprolol XL (24 HR) Succ 25 MG TAB.ER.24H PO SCH (08:52)
[2017-06-01] MEDS ORDERED: 0.9 % Sodium Chloride 1,000 ML ONE ×2 (12:06→12:51)
[2017-06-01] MEDS ORDERED: *HR* Heparin 10,000 UNIT/10 ML VIAL ONE (12:06)
[2017-06-01] MEDS ORDERED: Nitroglycerin 1,000 MCG/10 ML VIAL IV ONE (12:06)
[2017-06-01] MEDS ORDERED: Heparin 1,000 UNITS/500 mL NS 500 ML ONE ×2 (12:06→14:09)
--- NOTE | 2017-06-01 12:18 | Pre-Sedation Evaluation ---
Pre-sedation evaluation - Pre-sedation checklist Date of procedure: 06/01/17 Procedure: [facility] Recent Vitals: Last Vital Signs Temp 98.2 F 06/01/17 07:35 Pulse 84 06/01/17 07:35 Resp 16 06/01/17 07:35 BP 141/80 06/01/17 07:35 Pulse Ox 97 06/01/17 07:35 H&P (including ROS) documented in medical record: Yes Previous reaction to sedatives/anesthetics: Yes; explain in comment Dietary Status: NPO after Midnight Possible difficult airway: No ASA Classification *see protocol: CLASS II-Mild systemic disease Plan of Care: Pt appropriate candidate for procedure/moderate/conscious sedation
[2017-06-01] MEDS ORDERED: *HR* FentaNYL (PF) 100 MCG/2 ML VIAL ONE (12:51)
[2017-06-01] MEDS ORDERED: *HR* Midazolam HCl 2 MG/2 ML VIAL ONE (12:51)
[2017-06-01] MEDS ORDERED: Tirofiban 12.5 MG/250ML 12.5 MG/250 ML BAG ONE (13:42)
[2017-06-01] MEDS ORDERED: *HR* Atropine Sulfate 1 MG/10 ML SYRINGE ONE (13:46)
[2017-06-01] MEDS ORDERED: Furosemide 40 MG/4 ML VIAL ONE (14:48)
[2017-06-01] MEDS ORDERED: Tirofiban 12.5 MG/250ML 12.5 MG/250 ML BAG IVC SCH (15:45)
[2017-06-01 15:50] LABS: Basophils % 0.3 %; Eosinophils # 0.2 K/mcL (0.0-0.6); Eosinophils % 2.6 %; Hematocrit 45.4 % (37.5-50.1); Hemoglobin 15.3 g/dL (12.9-16.9); Immature Granulocytes % 0.4 % (0-4); Lymphocytes % 14.4 %; Mean Corpuscular HGB Conc 33.7 g/dL (31.6-35.5); Mean Corpuscular Hemoglobin 30.9 pg (28.0-33.3); Mean Corpuscular Volume 91.7 fL (83.0-100.0); Mean Platelet Volume 11.1 fL (9.4-12.4); Monocytes # 0.6 K/mcL (0.0-1.3); Monocytes % 9.3 %; Platelet Count 153 K/mcL (140-400); Red Blood Count 4.95 M/mcL (4.19-5.50); Red Cell Distribution Width 13.4 % (11.5-14.5)
[2017-06-01 15:56] LABS: BUN/Creatinine Ratio 21 (6-26); Blood Urea Nitrogen 20 mg/dL (8-26); Carbon Dioxide 24 mEq/L (19-29); Chloride 100 mEq/L (98-109); Glucose 218 mg/dL (70-99); Osmolality,Calculated 285 (280-300); Potassium 4.4 mEq/L (3.5-4.5); Sodium 133 mEq/L (136-145); eGFR For African Americans > 60 (> 60); eGFR For Non-African Americans > 60 (> 60)
[2017-06-01] MEDS ORDERED: NON-FORMULARY MEDICATION 1 EACH EACH (Insulin Lispro [Humalog] 0 UNIT) SQ SCH (17:00)
[2017-06-01] MEDS ORDERED: Furosemide 20 MG/2 ML VIAL IVP SCH (17:00)
[2017-06-01] MEDS ORDERED: *HR* Morphine 2 MG/ML SYRINGE IVP PRN (17:46)
--- NOTE | 2017-06-01 17:52 | Internal Med Progress Note ---
Date of Encounter: 06/01/17 Time of Encounter: 17:49 - Assessment and plan (1) NSTEMI (non-ST elevated myocardial infarction) Current Visit: Yes Status: Acute Assessment and plan: S/p cardiac cath - PCI RCA, LAD cont DTAP + B sel[place] waiting on final cath report d/c heparin gtt Card on board Pt does need to stay in the hospital more than 2 nights due to his complex medical problem..Needed Cardiac cath and further interventions. So will switch him to full admission. I did review Dr. Boyle's H & P including HPI, PMH, FH,SH , ROS, no changes noticed (2) Acute systolic (congestive) heart failure Current Visit: Yes Status: Acute Assessment and plan: Reviewed Echo - LVEF 30-35% Improved SOB will hold on Lasix tonight due to Cardiac cath cont close monitoring (3) Community acquired pneumonia Current Visit: Yes Status: Acute Assessment and plan: continue levaquin blood cultures - no growth so far Qualifiers: Laterality: unspecified laterality Qualified Code(s): J18.9 - Pneumonia, unspecified organism (4) Diabetes mellitus Current Visit: Yes Status: Chronic Assessment and plan: continue to monitor FS and BG sliding scale insulin algorithm ADA diet Qualifiers: Diabetes mellitus type: type 2 Diabetes mellitus complication status: with unspecified complications Diabetes mellitus extermination inspector insulin use: with extermination inspector use Qualified Code(s): E11.8 - Type 2 diabetes mellitus with unspecified complications; Z79.4 - intermediate (current) use of insulin; Z79.4 - intermediate ( current) use of insulin; Z79.4 - intermediate (current) use of insulin; Z79.4 - intermediate (current) use of insulin (5) DVT prophylaxis Current Visit: Yes Status: Acute Assessment and plan: Lovenox in AM - Subjective Interval history: Mr. Servin is a 66 year old male with PMH of DM presented to the ER for worsening shortness of breath and intermittent chest pain. Pt reports of recently finishing treatment for bronchitis with antibiotics and states he initially felt better with improvement of his shortness of breath however his symptoms persisted despite him finishing his bronchitis treatment. Reports of worsening shortness of breath with minimal exertion and states he is unable to lay down flat. Reports of localized left sided, pressure like chest pain, that is worst with deep inspiration and also on exertion. He got admitted with acute NSTEMI, Systolic CHF. Pt did got for [facility] today. Now he is resting comfortably. Denied any CP / SOB. - Constitutional Vitals: Temp Pulse Resp BP Pulse Ox 97.6 F 85 20 119/78 95 06/01/17 17:00 06/01/17 17:00 06/01/17 17:00 06/01/17 17:00 06/01/17 17:00 General appearance: Present: cooperative, A&O X 3, pleasant, no acute distress, answers questions appropriately - Head Head exam: Present: atraumatic, normal inspection - Neck Neck exam general surgery: Present: supple - Respiratory Respiratory exam: Present: decreased breath sounds, rales (mild crackles). Absent: respiratory distress, rhonchi, wheezes - Cardiovascular Cardiovascular exam: Present: RRR, +S1, +S2. Absent: systolic murmur, tachycardia - GI/Abdominal GI/Abdominal exam: Present: normal bowel sounds, soft. Absent: rebound, rigid, tenderness - Extremities Exam Extremities exam: Absent: calf tenderness, pedal edema, tenderness - Back Exam Back exam: Absent: CVA tenderness (L), CVA tenderness (R) - Neurological Exam Neurological exam: Present: alert, oriented X3 - Psychiatric Psychiatric exam: Present: normal affect, normal mood Internal Medicine: Result - Labs CBC & Chem 7: 06/01/17 15:30 06/01/17 15:30 Labs: Short CBC 06/01/17 Range/Units 15:30 WBC 6.9 (4.3-11.1) K/mcL Hgb 15.3 (12.9-16.9) g/dL Hct 45.4 (37.5-50.1) % Plt Count 153 (140-400) K/mcL Neutrophils # 5.0 (1.6-8.9) K/mcL BMP 06/01/17 06/01/17 06:39 15:30 Sodium 135 L 133 L Potassium 4.3 4.4 Chloride 103 100 Carbon Dioxide 25 24 BUN 24 20 Creatinine 1.04 0.94 Glucose 229 H 218 H Calcium 9.0 9.0 - ABG Interpretation ABG results: PT/INR, D-dimer PT 11.4 Seconds (9.4-12.1) 05/30/17 13:51 D-Dimer 549 ng/mLFEU (0-500) H 05/30/17 06:43 Consult Discharge Plan - Plan Referrals: Barbara Vaz CNP [Primary Care Provider] - 06/08/17 2:30 pm (Please follow up as schedule...)
[2017-06-01] MEDS: Insulin DETEMIR 100 UNIT/ML X5UNITS SQ SCH (21:23)
[2017-06-02] MEDS: Heparin 25,000 UNIT/500 ML D5W 25,000 UNIT/500 ML MLS IVC SCH (03:23)
[2017-06-02 06:16] LABS: Basophils % 0.5 %; Eosinophils # 0.2 K/mcL (0.0-0.6); Eosinophils % 2.8 %; Hematocrit 47.2 % (37.5-50.1); Hemoglobin 15.7 g/dL (12.9-16.9); Immature Granulocytes % 0.2 % (0-4); Lymphocytes # 1.1 K/mcL (0.6-4.6); Lymphocytes % 13.3 %; Mean Corpuscular HGB Conc 33.3 g/dL (31.6-35.5); Mean Corpuscular Hemoglobin 30.7 pg (28.0-33.3); Mean Corpuscular Volume 92.4 fL (83.0-100.0); Mean Platelet Volume 11.1 fL (9.4-12.4); Monocytes # 0.8 K/mcL (0.0-1.3); Monocytes % 10.3 %; Neutrophils # 5.9 K/mcL (1.6-8.9); Platelet Count 163 K/mcL (140-400); Red Blood Count 5.11 M/mcL (4.19-5.50); Red Cell Distribution Width 13.5 % (11.5-14.5); Segmented Neutrophils % 72.9 %
[2017-06-02 06:30] LABS: BUN/Creatinine Ratio 21 (6-26); Blood Urea Nitrogen 22 mg/dL (8-26); Carbon Dioxide 25 mEq/L (19-29); Chloride 102 mEq/L (98-109); Sodium 136 mEq/L (136-145)
[2017-06-02 06:31] LABS: Calcium 9.8 mg/dL (8.6-10.8); Glucose 164 mg/dL (70-99); Magnesium 2.2 mg/dL (1.6-2.6); Osmolality,Calculated 289 (280-300); eGFR For African Americans > 60 (> 60); eGFR For Non-African Americans > 60 (> 60)
[2017-06-02] MEDS: Insulin LISPRO 300 UNITS/3 ML VIAL SQ SCH ×2 (07:44→10:49)
[2017-06-02] MEDS: Aspirin Enteric Coated 81 MG Tablet PO SCH (07:45)
[2017-06-02] MEDS: Metoprolol XL (24 HR) Succ 25 MG TAB.ER.24H PO SCH (07:45)
[2017-06-02] MEDS ORDERED: NON-FORMULARY MEDICATION 1 EACH EACH (Omega-3/Dha/Epa/Fish Oil [Fish Oil 1,000 Mg Softgel] PO SCH (09:00)
[2017-06-02] MEDS ORDERED: Multivit/Ca/Min/Fe/FA 1 TAB TABLET PO SCH (09:00)
[2017-06-02] MEDS ORDERED: levoFLOXacin 750 MG TABLET PO SCH (09:00)
[2017-06-02] MEDS ORDERED: Acetaminophen 325 MG TABLET PO PRN (10:12)
[2017-06-02] MEDS ORDERED: *HR* HYDROcodone/Acet 5/325 mg TABLET PO PRN (10:12)
--- NOTE | 2017-06-02 10:18 | Cardiology Progress Note ---
Date of Encounter: 06/02/17 Time of Encounter: 10:16 Assessment and Plan (1) NSTEMI (non-ST elevated myocardial infarction) Current Visit: Yes Status: Acute Troponins 0.25, 0.45, 0.72--also in setting of CHF exacerbation and possible PNA. EKG with lateral ischemia. Underwent C yesterday--received ISIDRO to LAD and RCA. Needs staged PCI of Ramus. Final cath report pending. Pt is feeling much better, denies chest pain. Dyspnea improved. Discussed inpt vs. outpt staging of Ramus. He prefers outpt which is reasonable. DAPT (ASA,and Plavix) uninterrupted x 1 year. Pt verbalizes understanding. Continue Statin, BB. Echo EF 30-35%, severe global dysfunction. Add ACEi. Right femoral access site healing well. No bleeding, hematoma or ecchymosis noted. Restrictions discussed. Cardiology signing off. Reconsult PRN. Will coordinate outpt follow-up in 1 week. (2) CHF exacerbation Current Visit: Yes Status: Acute Acute systolic EF 30-35% on echo--new finding. BNP 884. CXR with evidence of CHF and chest CTA with moderate bilateral pleural effusions. Pt was diuresed--symptoms improved. Will add PO Lasix 20mg daily. Recommend strict I/Os, Na and fluid restriction, daily weights. Qualifiers: Congestive heart failure type: systolic Qualified Code(s): I50.23 - Acute on chronic systolic (congestive) heart failure (3) Ischemic cardiomyopathy Current Visit: Yes Status: Acute Echo EF 30-35%, global. [facility] s/p ISIDRO to LAD and RCA, needs Ramus staged. Continue BB. Start ACEi. Recheck echo as outpt in 3 months. If EF remains <35%, consider ICD implant. (4) CAD (coronary artery disease) Current Visit: Yes Status: Acute As above, s/p PCI to LAD and RCA, needs Ramus staged as outpt. ASA, Plavix, Statin, BB, ACEi. Qualifiers: Coronary Disease-Associated Artery/Lesion type: [place] artery [place] vs. transplanted heart: [place] heart Associated angina: without angina Qualified Code(s): I25.10 - Atherosclerotic heart disease of [place] coronary artery without angina pectoris Discussion w patient/family: The assessment and plan as outlined above was discussed with the patient and/or family members who expressed understanding and agreement. All questions were answered. Thank you for involving us in the care of your patient. Please call with any questions. I will discuss all the above with Dr. Lew and make changes as necessary. Subjective Principal diagnosis: NSTEMI, ICMP, CHF, CAD Interval history: S/P LHC yesterday with ISIDRO to LAD and RCA. Ramus with significant disease which will need staged. Pt reports feeling much better. Denies chest pain, dyspnea and lower extremity edema have improved. Echo EF 30-35%. Final cath report pending. Objective Vital Signs, Last 4 Hours Temp Pulse Resp BP Pulse Ox 06/02/17 07:19 98.0 F 92 16 110/71 95 Vital Signs Temp Pulse Resp BP Pulse Ox 06/02/17 07:19 98.0 F 92 16 110/71 95 06/02/17 04:32 98.0 F 88 17 131/81 99 06/01/17 23:51 97.4 F L 80 17 114/70 97 06/01/17 21:28 110/68 06/01/17 21:00 95/59 06/01/17 20:19 97.6 F 83 18 99/62 94 06/01/17 17:00 97.6 F 85 20 119/78 95 06/01/17 15:36 97.5 F L 91 17 145/97 96 06/01/17 12:28 97.6 F 81 16 128/82 98 Intake and Output 06/01/17 06/02/17 06/02/17 23:59 07:59 15:59 Intake Total 467 / 467 360 / 360 Output Total 325 / 325 50 / 50 Balance -325 / -325 417 / 417 360 / 360 Intake: IV Fluids 417 / 417 Aggrastat 12.5 MG/250 ML 12.5 7 / 7 mg In 250 ml @ 0.075 MCG/KG/MIN 6.899 mls/hr IVC .Q24H JAMIL Rx# :[id number] Oral 50 / 50 360 / 360 Output: Urine 325 / 325 50 / 50 Other: Meal Breakfast Percent of Meal Consumed 100% Stool Size Small Stool Consistency liquid # Bowel Movements 1 Weight 74.571 kg Blood Glucose* 313 169 Patient Weight 06/02/17 23:59 Weight 74.571 kg General: Conversant, No Apparent Distress HEENT: Atraumatic, Normocephaly, Mucus Membranes Moist Neck: No JVD, Normal carotid pulses Cardiac: Reg Rate and Rhythm, Normal S1 and S2, No Murmur Lungs: Other (diminished) Neuro: Alert and responsive, No focal deficits noted Abdomen: Soft, Non-Tender Skin: Other (right femoral access site healing well. No bleeding, hematoma or ecchymosis noted.) Musculoskeletal: No Chest Wall Tenderness Extremities: No Clubbing, No Cyanosis, No Edema, Normal Pulses Results 06/02/17 05:57 06/02/17 05:57 Lab Results 06/01/17 06/01/17 06/02/17 15:30 15:30 05:57 WBC 6.9 8.1 Hgb 15.3 15.7 Hct 45.4 47.2 Plt Count 153 163 Sodium 133 L Potassium 4.4 Chloride 100 Carbon Dioxide 24 BUN 20 Creatinine 0.94 Glucose 218 H Calcium 9.0 Magnesium 06/02/17 05:57 WBC Hgb Hct Plt Count Sodium 136 Potassium 4.0 Chloride 102 Carbon Dioxide 25 BUN 22 Creatinine 1.07 Glucose 164 H Calcium 9.8 Magnesium 2.2 Short CBC 06/02/17 06/01/17 Range/Units 05:57 15:30 WBC 8.1 6.9 (4.3-11.1) K/mcL Hgb 15.7 15.3 (12.9-16.9) g/dL Hct 47.2 45.4 (37.5-50.1) % Plt Count 163 153 (140-400) K/mcL Neutrophils # 5.9 5.0 (1.6-8.9) K/mcL BMP 06/02/17 06/01/17 Range/Units 05:57 15:30 Sodium 136 133 L (136-145) mEq/L Potassium 4.0 4.4 (3.5-4.5) mEq/L Chloride 102 100 (98-109) mEq/L Carbon Dioxide 25 24 (19-29) mEq/L BUN 22 20 (8-26) mg/dL Creatinine 1.07 0.94 (0.72-1.25) mg/dL Glucose 164 H 218 H (70-99) mg/dL Calcium 9.8 9.0 (8.6-10.8) mg/dL Active Medications Acetaminophen (Tylenol) 650 mg PO Q6HR PRN PRN Reason: Mild Pain/Fever Stop: 12/02/17 10:13 Hydrocodone Bitart/Acetaminophen ([place] 5-325 Mg) 1 tab PO Q6HR PRN PRN Reason: Moderate to Severe Pain Stop: 11/29/17 18:45 Aspirin (Aspirin Ec) 81 mg PO DAILY [facility] Stop: 11/30/17 09:01 Last Admin: 06/02/17 07:45 Dose: 81 mg Atorvastatin Calcium (Lipitor) 80 mg PO HS [facility] Stop: 11/29/17 13:13 Last Admin: 06/01/17 21:23 Dose: 80 mg Benzonatate (Tessalon) 100 mg PO TID PRN PRN Reason: Cough Stop: 11/29/17 15:16 Clopidogrel Bisulfate (Plavix) 75 mg PO DAILY [facility] Stop: 12/02/17 09:01 Last Admin: 06/02/17 07:45 Dose: 75 mg Dextrose/Water (Dextrose 50% (Syg)) 25 ml IVP AD PRN PRN Reason: Hypoglycemia Stop: 11/29/17 10:11 Dicyclomine HCl (Bentyl) 10 mg PO QID PRN PRN Reason: Cramping Stop: 12/01/17 15:14 Glucagon (Glucagen) 1 mg IM ONCE PRN PRN Reason: Hypoglycemia Stop: 11/29/17 10:11 Glucose (Gluctose) 15 gm PO ONCE PRN PRN Reason: Hypoglycemia Stop: 11/29/17 10:11 Glucose (Gluctose) 30 gm PO ONCE PRN PRN Reason: Hypoglycemia Stop: 11/29/17 10:11 Dextrose (Dextrose 5%) 1,000 mls @ 100 mls/hr IVC .Q10H PRN PRN Reason: HYPOGLYCEMIA Stop: 11/29/17 10:11 Insulin Detemir (Levemir) 20 unit SQ HS [facility] Stop: 11/29/17 21:01 Last Admin: 06/01/17 21:23 Dose: 20 unit Insulin Human Lispro (Humalog) 0 units SQ HS [facility] PRN Reason: Protocol Stop: 11/29/17 21:01 Last Admin: 06/01/17 21:23 Dose: 5 units Insulin Human Lispro (Humalog) 0 units SQ TIDAC [facility] PRN Reason: Protocol Stop: 11/29/17 11:31 Last Admin: 06/02/17 07:44 Dose: 2 units Levofloxacin (Levaquin) 750 mg PO DAILY [facility] Stop: 12/02/17 09:01 Last Admin: 06/02/17 07:45 Dose: 750 mg Metoprolol Succinate (Toprol Xl) 25 mg PO DAILY [facility] Stop: 11/30/17 09:46 Last Admin: 06/02/17 07:45 Dose: 25 mg Multivitamins/Calcium (Thera M Plus) 1 tab PO DAILY [facility] Stop: 12/02/17 09:01 Last Admin: 06/02/17 07:45 Dose: 1 tab Naloxone HCl (Narcan) 0.4 mg IVP Q2MIN PRN PRN Reason: Opioid Reversal Stop: 11/29/17 10:08 Nitroglycerin (Nitroglycerin) 0.4 mg SL Q5MIN PRN PRN Reason: Chest Pain Stop: 11/29/17 15:43 Ondansetron HCl (Zofran) 4 mg IVP Q6HR PRN PRN Reason: Nausea And Vomiting Stop: 11/29/17 10:08 - Imaging and Cardiology Echo: report reviewed Cardiac cath: report reviewed - EKG Interpretation EKG results cardiology: other (12 hr tele AVG HR 82, SR, no significant pauses or arrhythmias.) Consult Discharge Plan - Plan Additional Instructions: RISK FACTORS: STOP SMOKING: If you smoke, STOP. Smoking or tobacco use significantly increases your risk of heart disease because nicotine causes the arteries to narrow or constrict. It also causes fats to stick to the artery. Your chances of having a heart attack are greatly increased if you continue to smoke. For more information, call the education line for smoking cessation 6-919-ZZOFRSI EAT A LOW FAT/CHOLESTEROL/SODIUM DIET: This diet may help reduce your chances of having a heart attack. LIFTING: Avoid lifting anything more than 10 pounds for 5-7 days Prior to straining, laughing, sneezing and/or coughing, apply manual pressure directly over insertion site. ACTIVITY: You may walk or climb stairs as tolerated You can resume sexual activity as tolerated In general, you are encouraged to engage in a minimum of 30 minutes or more of moderate intensity physical activity, such as brisk walking, daily or at least 3 -4 times weekly BATHING Do not submerge the site into water (bath tub, hot tub, swimming pool) for 1 week. This can be a source for infection into the blood stream. You may shower after 24 hours SITE CARE: After 24 hours, you may remove the dressing and leave the site open to air. Keep the site clean and dry. Clean gently and pat dry. You can expect bruising and tenderness that gradually resolve within a week or two. Return to work as instructed per your physician Resume driving as instructed per physician Keep all scheduled follow up appointments Resume medications as instructed IMPORTANT: If prescribed a Platelet Aggregation Inhibitor such as, Plavix, Brilinta or Effient: Duration of therapy is minimum one year These medications are often used in combination with Aspirin in prevention of future heart attacks Never discontinue unless consult with your Hvac Lead STROKE (CVA) Risk factors for a stroke are: Age, cigarette smoking, diabetes, excessive alcohol consumption, family history, high blood pressure, overweight, physical inactivity, prior stroke, heart attack, diagnosis of carotid artery stenosis or other artery disease. Warning signs: Sudden numbness or weakness of the face, arm or leg; especially on one side of the body, sudden confusion, trouble speaking or understanding, sudden trouble seeing in one or both eyes, sudden trouble walking, dizziness, loss of balance or coordination, sudden severe headache with no cause. Call 911 or go to the Emergency Room. CONGESTIVE HEART FAILURE: If you have been diagnosed with Congestive Heart Failure (CHF) and your symptoms return, make an appointment with your physician Weigh yourself daily. Notify your physician if you have a weight gain of two or more pounds in one day or five or more pounds in one week. If you experience any difficulty breathing, please call 911 BLEEDING: Although the risk of bleeding is minimal, it can happen. If you have any bleeding from the site, apply firm pressure above the puncture site for 10-15 minutes. If the bleeding does not stop, continue manual pressure and call 911 Contact your physician if: You develop a fever greater than 101 degrees Fahrenheit Your site becomes reddened or has any drainage You have an increase in pain or burning at the site or if a large knot forms at the site. If you experience chest pain, shortness of breath, dizziness, or extreme tiredness, stop the activity and rest. Please notify your physicians office if you experience any of these symptoms and they are not relieved by rest please call 911! Referrals: Barbara Vaz, [facility] [Primary Care Provider] - 06/08/17 2:30 pm (Please follow up as schedule...)
[2017-06-02] MEDS ORDERED: Furosemide 20 MG TABLET PO SCH (10:30)
[2017-06-02 15:28] VITALS: BP 101/64
--- NOTE | 2017-06-02 15:33 | Physician Discharge Referral ---
Home Health/Hosp Referral Info Transfer to: Home Health Provider in Charge Post Discharge: PCP - Diagnosis (1) NSTEMI (non-ST elevated myocardial infarction) Priority: Primary Status: Acute (2) Systolic heart failure Priority: Secondary Status: Acute (3) CHF exacerbation Priority: Secondary Status: Acute (4) Community acquired pneumonia Priority: Secondary Status: Acute (5) Diabetes mellitus Priority: Secondary Status: Chronic - Respiratory Orders Smoking Cessation: Smoking cessation has been advised. For more information, call the [place] Tobacco Quit Line at 5-460-KQHL-NOW. - Diet/Nutrition Diet/Nutrition Orders: No Added Salt (KINZA), Cardiac - Activity Activity Orders: Up ad angie - Services Needed Following services are medically necessary services: Nursing, Home Health Aide - Transfer Medications Prescriptions: Atorvastatin [Lipitor] 80 mg PO HS #30 tablet Clopidogrel [Plavix] 75 mg PO DAILY #30 tablet Furosemide [Lasix] 20 mg PO DAILY #30 tablet levoFLOXacin [Levaquin] 750 mg PO DAILY #5 tablet Lisinopril [Zestril] 2.5 mg PO DAILY #30 tablet Metoprolol XL (24 HR) Succ [Toprol Xl] 25 mg PO DAILY #30 tab.er.24h Home Medications: Aspirin [Lo-Dose Aspirin EC] 81 mg PO DAILY 05/30/17 [History] Dicyclomine [Bentyl] 10 mg PO QID PRN 05/30/17 [History] Insulin Glargine,Hum.rec.anlog [Lantus Solostar] 20 unit SQ HS 05/30/17 [History ] Insulin LISPRO [Humalog] 2 - 12 unit SQ TIDWM 05/30/17 [History] Multivitamin [One Daily Essential] 1 tab PO DAILY 05/30/17 [History] [place]-3/Dha/Epa/Fish Oil [Fish Oil 1,000 mg Softgel] 1,000 mg PO DAILY 05/30/17 [History] SitaGLIPtin [Januvia] 25 mg PO DAILY 05/30/17 [History] metFORMIN [Glucophage] 500 mg PO BID 05/30/17 [History] Atorvastatin [Lipitor] 80 mg PO HS #30 tablet 06/02/17 [Rx] Clopidogrel [Plavix] 75 mg PO DAILY #30 tablet 06/02/17 [Rx] Furosemide [Lasix] 20 mg PO DAILY #30 tablet 06/02/17 [Rx] Lisinopril [Zestril] 2.5 mg PO DAILY #30 tablet 06/02/17 [Rx] Metoprolol XL (24 HR) Succ [Toprol Xl] 25 mg PO DAILY #30 tab.er.24h 06/02/17 [ Rx] levoFLOXacin [Levaquin] 750 mg PO DAILY #5 tablet 06/02/17 [Rx] Allergies/Adverse Reactions: 3 Allergy/AdvReac Type Severity Reaction Status Date / Time No Known Allergies Allergy Verified 05/30/17 06:31 Certification: Further, I certify that my clinical findings support that this patient is homebound (i.e. absences from home require considerable and taxing effort and are for medical reasons or baptism services or infrequently or short duration when for other reasons) because: Homebound Reason: Severity of cardiac or pulmonary status limits activity tolerance Attestation: My signature below is to certify that this patient is under my care and that I, or nurse practitioner, or a physician's technical support assistant working with me, has a face-to -face encounter with this patient.
--- NOTE | 2017-06-02 15:49 | Discharge Summary ---
Date of Encounter: 06/02/17 Time of Encounter: 15:34 - Discharge Diagnosis (1) NSTEMI (non-ST elevated myocardial infarction) Priority: Primary Status: Acute (2) Systolic heart failure Priority: Secondary Status: Acute Qualifiers: Heart failure chronicity: acute on chronic Qualified Code(s): I50.23 - Acute on chronic systolic (congestive) heart failure (3) CHF exacerbation Priority: Secondary Status: Acute Qualifiers: Congestive heart failure type: systolic Qualified Code(s): I50.23 - Acute on chronic systolic (congestive) heart failure (4) Community acquired pneumonia Priority: Secondary Status: Acute Qualifiers: Laterality: unspecified laterality Qualified Code(s): J18.9 - Pneumonia, unspecified organism (5) Diabetes mellitus Priority: Secondary Status: Chronic Qualifiers: Diabetes mellitus type: type 2 Diabetes mellitus complication status: with unspecified complications Diabetes mellitus intermediate manager insulin use: with intermediate manager use Qualified Code(s): E11.8 - Type 2 diabetes mellitus with unspecified complications; Z79.4 - [facility] (current) use of insulin; Z79.4 - [facility] ( current) use of insulin; Z79.4 - intermediate designer (current) use of insulin; Z79.4 - [facility] (current) use of insulin - Discharge Medications Prescriptions: Atorvastatin [Lipitor] 80 mg PO HS #30 tablet Clopidogrel [Plavix] 75 mg PO DAILY #30 tablet Furosemide [Lasix] 20 mg PO DAILY #30 tablet levoFLOXacin [Levaquin] 750 mg PO DAILY #5 tablet Lisinopril [Zestril] 2.5 mg PO DAILY #30 tablet Metoprolol XL (24 HR) Succ [Toprol Xl] 25 mg PO DAILY #30 tab.er.24h Home Medications: Aspirin [Lo-Dose Aspirin EC] 81 mg PO DAILY 05/30/17 [History] Dicyclomine [Bentyl] 10 mg PO QID PRN 05/30/17 [History] Insulin Glargine,Hum.rec.anlog [Lantus Solostar] 20 unit SQ HS 05/30/17 [History ] Insulin LISPRO [Humalog] 2 - 12 unit SQ TIDWM 05/30/17 [History] Multivitamin [One Daily Essential] 1 tab PO DAILY 05/30/17 [History] [place]-3/Dha/Epa/Fish Oil [Fish Oil 1,000 mg Softgel] 1,000 mg PO DAILY 05/30/17 [History] SitaGLIPtin [Januvia] 25 mg PO DAILY 05/30/17 [History] metFORMIN [Glucophage] 500 mg PO BID 05/30/17 [History] Atorvastatin [Lipitor] 80 mg PO HS #30 tablet 06/02/17 [Rx] Clopidogrel [Plavix] 75 mg PO DAILY #30 tablet 06/02/17 [Rx] Furosemide [Lasix] 20 mg PO DAILY #30 tablet 06/02/17 [Rx] Lisinopril [Zestril] 2.5 mg PO DAILY #30 tablet 06/02/17 [Rx] Metoprolol XL (24 HR) Succ [Toprol Xl] 25 mg PO DAILY #30 tab.er.24h 06/02/17 [ Rx] levoFLOXacin [Levaquin] 750 mg PO DAILY #5 tablet 06/02/17 [Rx] Allergies/Adverse Reactions: 3 Allergy/AdvReac Type Severity Reaction Status Date / Time No Known Allergies Allergy Verified 05/30/17 06:31 Procedures/tests Complete & Pending: Procedures Performed prior 72 hours Category Date Time Status CL Cardiac Catheterization [CL] Routine Claim Review Medical Director 06/01/17 08:05 Ordered EV echocardiogram w enhance Stat Y 05/31/17 10:10 Completed Date of admission: 05/30/17 09:06 Primary care physician: Barbara Vaz CNP Consults: 05/30/17 13:10 Consult to Cardiology [CONS] Routine Comment: Consulting Provider: Cardiology e[facility] Reason for Consult: elevated TNI Call Completed: Yes 05/31/17 09:40 Consult to Cardiac Rehabilitation-Phase1 [CONS] Routine Comment: Reason for Consult: NSTEMI Call Completed: No 06/01/17 15:13 Consult to Cardiac Rehabilitation-Phase1 [CONS] Routine Comment: Reason for Consult: post op cath Call Completed: Yes Discharging clinician: Shaun Dominguez - Patient Status Disposition: Home, Self-Care Condition: Fair Functional capacity at discharge: independent ambulation Overall status at discharge: patient is progressing back to baseline - Discharge Instructions Instructions: Myocardial Infarction (DC), Left Heart Catheterization (DC), Pneumonia (DC) Follow Up With: Barbara Vaz CNP [Primary Care Provider] - 06/08/17 2:30 pm (Please follow up as schedule...) Additional Instructions: RISK FACTORS: STOP SMOKING: If you smoke, STOP. Smoking or tobacco use significantly increases your risk of heart disease because nicotine causes the arteries to narrow or constrict. It also causes fats to stick to the artery. Your chances of having a heart attack are greatly increased if you continue to smoke. For more information, call the education line for smoking cessation 6-415-YMDYAND EAT A LOW FAT/CHOLESTEROL/SODIUM DIET: This diet may help reduce your chances of having a heart attack. LIFTING: Avoid lifting anything more than 10 pounds for 5-7 days Prior to straining, laughing, sneezing and/or coughing, apply manual pressure directly over insertion site. ACTIVITY: You may walk or climb stairs as tolerated You can resume sexual activity as tolerated In general, you are encouraged to engage in a minimum of 30 minutes or more of moderate intensity physical activity, such as brisk walking, daily or at least 3 -4 times weekly BATHING Do not submerge the site into water (bath tub, hot tub, swimming pool) for 1 week. This can be a source for infection into the blood stream. You may shower after 24 hours SITE CARE: After 24 hours, you may remove the dressing and leave the site open to air. Keep the site clean and dry. Clean gently and pat dry. You can expect bruising and tenderness that gradually resolve within a week or two. Return to work as instructed per your physician Resume driving as instructed per physician Keep all scheduled follow up appointments Resume medications as instructed IMPORTANT: If prescribed a Platelet Aggregation Inhibitor such as, Plavix, Brilinta or Effient: Duration of therapy is minimum one year These medications are often used in combination with Aspirin in prevention of future heart attacks Never discontinue unless consult with your Tie Puller STROKE (CVA) Risk factors for a stroke are: Age, cigarette smoking, diabetes, excessive alcohol consumption, family history, high blood pressure, overweight, physical inactivity, prior stroke, heart attack, diagnosis of carotid artery stenosis or other artery disease. Warning signs: Sudden numbness or weakness of the face, arm or leg; especially on one side of the body, sudden confusion, trouble speaking or understanding, sudden trouble seeing in one or both eyes, sudden trouble walking, dizziness, loss of balance or coordination, sudden severe headache with no cause. Call 911 or go to the Emergency Room. CONGESTIVE HEART FAILURE: If you have been diagnosed with Congestive Heart Failure (CHF) and your symptoms return, make an appointment with your physician Weigh yourself daily. Notify your physician if you have a weight gain of two or more pounds in one day or five or more pounds in one week. If you experience any difficulty breathing, please call 911 BLEEDING: Although the risk of bleeding is minimal, it can happen. If you have any bleeding from the site, apply firm pressure above the puncture site for 10-15 minutes. If the bleeding does not stop, continue manual pressure and call 911 Contact your physician if: You develop a fever greater than 101 degrees Fahrenheit Your site becomes reddened or has any drainage You have an increase in pain or burning at the site or if a large knot forms at the site. If you experience chest pain, shortness of breath, dizziness, or extreme tiredness, stop the activity and rest. Please notify your physicians office if you experience any of these symptoms and they are not relieved by rest please call 911! - Diet and Activity Activity: increase activity as tolerated Diet: advance to your usual diet, low fat, low cholesterol, low salt diet Hospital course: 75-year-old male with history of diabetes presents in the ER for worsening shortness of breath and intermittent chest pain. He reported recently finishing a treatment for bronchitis and only briefly felt improvement of symptoms. Dyspnea occurred with minimal exertion and was unable to lay down flat. He noted localized left-sided pressure-like chest pain worsened with deep inspiration. In the ER he was found to have an elevated BNP and d-dimer in the ER. CT was negative for PE but findings are consistent with pleural effusions bilaterally and also for pneumonia. Started on Levaquin. His troponin levels gradually increased initially 0.25 but peaked at 0.7 to. EKG showed lateral ischemia but no ST changes Cardiology was consulted and he was treated as an end STEMI and started on heparin drip. Started on aspirin, Lipitor, metoprolol. He was also noted to have CHF exacerbation and he was diuresed with Lasix IV, placed on strict I's and O's, with fluid restriction and daily weights. On 06/01 he underwent left heart catheter. Had stents placed in RCA and LAD. EF was shown 30-35% with severe global dysfunction. ESTRELLA inhibitor and beta blockers were added. He was also discharged home with Lasix 40 mg by mouth daily. Patient did not complain of any more chest pain. He was hemodynamically stable prior to discharge. Discharged to finish course of Levaquin. Patient is to follow up with cardiology in 1 week. - Time Spent with Patient Total time spent providing and/or coordinating discharge services: - Constitutional Vitals: Temp Pulse Resp BP Pulse Ox 97.9 F 88 16 101/64 97 06/02/17 15:27 06/02/17 15:27 06/02/17 15:27 06/02/17 15:27 06/02/17 15:27 General appearance: Present: cooperative, A&O X 3, pleasant, no acute distress, answers questions appropriately Exam: - Head Head exam: Present: atraumatic, normal inspection - Neck Neck exam general surgery: Present: supple - Respiratory Respiratory exam: Present: decreased breath sounds, rales (mild crackles). Absent: respiratory distress, rhonchi, wheezes - Cardiovascular Cardiovascular exam: Present: RRR, +S1, +S2. Absent: systolic murmur, tachycardia - GI/Abdominal GI/Abdominal exam: Present: normal bowel sounds, soft. Absent: rebound, rigid, tenderness - Extremities Exam Extremities exam: Absent: calf tenderness, pedal edema, tenderness - Back Exam Back exam: Absent: CVA tenderness (L), CVA tenderness (R) - Neurological Exam Neurological exam: Present: alert, oriented X3 - Psychiatric Psychiatric exam: Present: normal affect, normal mood
[2017-06-02] MEDS ORDERED: *HR* Heparin 5,000 UNIT/ML VIAL SQ SCH (18:00)
== END 2017-06-02 17:54 | disposition home or self-care (01) | DRG 246 ==
LOC: EMEROO 06:25 → 2ANU 09:06 → SUATTDRO 09:06 → 2ANU 09:27
PROVIDERS: ADMIT Family Medicine; ATTEND Internal Medicine